=== PATIENT | male | born 1975 | race Caucasian/White ===

== ENCOUNTER 2018-01-05 19:24 | Inpatient (IN) | payer OTHER ==
--- NOTE | 2018-01-05 20:43 | PDOC ---
History of Present Illness <Steffanie Arroyo - Last Filed: 01/05/18 23:34> - History of Present Illness Initial Comments: 42yo M with no significant PMH presenting with RLQ pain. Pain has been constant , started about 24 hours ago, and gradually getting worse, now 10/10. Walking and movement makes the pain worse. Patient reports loss of appetitie and 2 episodes of NBNB vomiting. Last bowel movement was today and was a normal formed brown stool. No history of kidney stones or surgery. He has not taken anything to alleviate the pain. Reports fever and chills. Denies chest pain, shortness of breath, dysuria, or hematuria. <ThaiAnel - Last Filed: 01/05/18 23:39> - General Chief Complaint: Pain, Acute Stated Complaint: ABDOMINAL PAIN Time Seen by Provider: 01/05/18 20:42 Past History <Steffanie Arroyo - Last Filed: 01/05/18 23:34> - Past Medical History COPD: No - Suicide/Smoking/Psychosocial Hx Smoking History: Never smoked <ThaiDejuanAnel - Last Filed: 01/05/18 23:39> - Past Medical History Allergies/Adverse Reactions: Allergies Allergy/AdvReac Type Severity Reaction Status Date / Time No Known Allergies Allergy Verified 01/05/18 19:30 Review of Systems - Review of Systems Comments:: Constitutional: +fever, +chills Cardiovascular: no chest pain, no palpitations Respiratory: no cough, no shortness of breath Gastrointestinal: +abdominal pain, +nausea, +vomiting, no diarrhea, no constipation Genitourinary: no dysuria, no frequency Musculoskeletal: no myalgia, no arthralgia Skin: no rash, no itching Neurologic: no headache, no dizziness <ThaiDejuanAnel - Last Filed: 01/05/18 23:39> *Physical Exam - Vital Signs Last Vital Signs Temp Pulse Resp BP Pulse Ox 97.1 F L 86 20 110/78 99 01/05/18 19:30 01/05/18 22:42 01/05/18 22:42 01/05/18 22:42 01/05/18 22:42 <Steffanie Arroyo - Last Filed: 01/05/18 23:34> - Vital Signs Last Vital Signs Temp Pulse Resp BP Pulse Ox 97.1 F L 90 18 108/82 99 01/05/18 19:30 01/05/18 19:30 01/05/18 19:30 01/05/18 19:30 01/05/18 19:30 - Physical Exam Comments: General: Awake, alert, and fully oriented, writhing in pain Head: no signs of trauma Eyes: EOMI, sclera anicteric ENT: Moist mucus membranes, Neck: Normal ROM, supple Lungs: Lungs clear, Normal breath sounds Cardio: Regular rhythm, S1 and S2 present Abdomen: Soft, Tender to palpation in RLQ, + rebound, +Psoas, + Obturator, + McBurney, + Rovsing, no masses Extremities: Normal range of motion, Distal pulses present SKIN: Warm, Dry, normal turgor Neurologic: Cranial nerves II through XII grossly intact. Normal speech <Anel Monsalve - Last Filed: 01/05/18 23:39> ED Treatment Course - LABORATORY CBC & Chemistry Diagram: 01/05/18 21:32 01/05/18 21:32 - ADDITIONAL ORDERS Additional order review: Laboratory Results 01/05/18 01/05/18 01/05/18 21:35 21:32 21:32 PT with INR INR Sodium Potassium Chloride Carbon Dioxide Anion Gap BUN Creatinine Creat Clearance w eGFR Random Glucose Lactic Acid 1.2 Calcium Total Bilirubin AST ALT Alkaline Phosphatase Total Protein Albumin Lipase Urine Color Ltyellow Urine Appearance Clear Urine pH 7.0 Ur Specific [place] 1.010 Urine Protein Negative Urine Glucose (UA) Negative Urine Ketones Trace H Urine Blood Negative Urine Nitrite Negative Urine Bilirubin Negative Urine Urobilinogen Negative Ur Leukocyte Esterase Negative Blood Type B POSITIVE Antibody Screen Negative 01/05/18 01/05/18 21:32 21:32 PT with INR 13.90 H INR 1.18 H Sodium 141 Potassium 3.8 Chloride 104 Carbon Dioxide 24 Anion Gap 13 BUN 11 Creatinine 0.8 Creat Clearance w eGFR > 60 Random Glucose 100 Lactic Acid Calcium 9.7 Total Bilirubin 1.3 H AST 13 L ALT 25 Alkaline Phosphatase 47 Total Protein 7.6 Albumin 4.1 Lipase 143 Urine Color Urine Appearance Urine pH Ur Specific [place] Urine Protein Urine Glucose (UA) Urine Ketones Urine Blood Urine Nitrite Urine Bilirubin Urine Urobilinogen Ur Leukocyte Esterase Blood Type Antibody Screen 01/05/18 21:32 RBC 4.83 MCV 88.8 MCHC 33.3 RDW 13.4 MPV 8.1 Neutrophils % 74.6 Lymphocytes % 18.3 Monocytes % 6.0 Eosinophils % 0.3 Basophils % 0.8 - Medications Given in the ED: ED Medications Discontinued Medications Generic Name Dose Route Start Last Admin Trade Name Ron PRN Reason Stop Dose Admin Sodium Chloride 1,000 mls @ 1,000 mls/hr 01/05/18 21:11 01/05/18 21:32 Normal Saline - IV 01/05/18 22:10 1,000 mls/hr ASDIR STA Administration Morphine Sulfate 4 mg 01/05/18 21:10 01/05/18 21:32 Morphine Injection - IVPUSH 01/05/18 21:11 4 mg ONCE ONE Administration Ondansetron HCl 4 mg 01/05/18 21:10 01/05/18 21:32 Zofran Injection IVPUSH 01/05/18 21:11 4 mg ONCE ONE Administration <Steffanie Arroyo - Last Filed: 01/05/18 23:34> - LABORATORY CBC & Chemistry Diagram: 01/05/18 21:32 01/05/18 21:32 <Anel Monsalve - Last Filed: 01/05/18 23:39> Medical Decision Making - Medical Decision Making 01/05/18 23:34 Patient Name: LENO RHODES THIS IS A PRELIMINARY REPORT FROM [facility]AG[facility]SEM[employer] SUPERVISOR DATE OF SERVICE: 2018-01-05 22:34:34 IMAGES: [id number] EXAM: CT ABDOMEN \T\ PELVIS CT WITH CONTR HISTORY: Right lower quadrant pain COMPARISON: None. FINDINGS: Abdomen Liver: There is a small hepatic cyst Spleen: Normal Pancreas: Normal Gallbladder: Normal CONFIDENTIALITY NOTICE: This information is intended only for the use of the recipient(s) named above. If you are not the intended recipient, or a person responsible for delivering it to the intended recipient, you are hereby notified that any disclosure, copying, distribution or use of any of the information contained in or attached to this transmission is STRICTLY PROHIBITED. If you have received this transmission in error, please immediately notify Imaging Intervention Teacher and destroy the original transmission and its attachments without saving them in any manner [address] [facility] [address] [place] [address] Phone: [phone] Fax: Email: [email or web address] Patient Information: : 1975 Order Type: Preliminary Name: MEAGAN BURR Sex: M Study Description: CT ABDOMEN AND PELVIS Modality: CT Location: [facility] Referring Physician: THAI DURAND Stomach: Normal Small bowel: Normal Large bowel: Normal Appendix: Appendix is distended and inflamed measuring 11 mm. There is an appendicolith. There is surrounding inflammation. Adrenals:Normal Kidneys: Normal Vascular: Normal Lymphatic: Normal Peritoneal: No free peritoneal air or fluid Pelvis: Prostate: normal Rectum: Normal Bladder: Normal The inferior thorax: Normal General: Skeletal: Normal Abdominal wall: Normal IMPRESSION: Acute appendicitis <Steffanie Arroyo - Last Filed: 01/05/18 23:34> - Medical Decision Making Patient not in bed. Unaware of whereabouts. 01/05/18 20:50 42yo M with no significant PMH presenting with RLQ pain. DDX includes appendicitis given anorexia, nausea with RLQ tenderness on abdominal exam. Labs including CBC to assess for elevated white count CT abd/pelvis w/contrast Morphine 4mg for pain IV Fluids Zofran 4mg 01/05/18 21:27 WBC= 15.3, elevated Other labs, CT pending 01/05/18 22:03 CT abdomen/ pelvis: Appendix is distended and inflamed measuring 11mm. There is an appendicolith. There is surrounding inflammation. 01/05/18 23:38 <Anel Monsalve - Last Filed: 01/05/18 23:39> *DC/Admit/Observation/Transfer - Discharge Dispostion Decision to Admit order: Yes <Steffanie Arroyo - Last Filed: 01/05/18 23:34> <Anel Monsalve - Last Filed: 01/05/18 23:39> Diagnosis at time of Disposition: Appendicitis - Discharge Dispostion Condition at time of disposition: Guarded
[2018-01-05] MEDS ORDERED: morphine CARPU-JECT 4 MG/1 ML DISP.SYRIN IVPUSH ONE (21:10)
[2018-01-05] MEDS ORDERED: ONDANSETRON 4 MG/2 ML VIAL IVPUSH ONE (21:10)
[2018-01-05] MEDS ORDERED: SODIUM CHLORIDE 1,000 ML IV STA (21:11)
--- NOTE | 2018-01-05 21:28 | PDOC ---
Attending Attestation - HPI HPI: 01/05/18 21:34 The patient is a 42 year old male with no significant past medical history who presents to the ER with right lower quadrant pain since 10PM yesterday. Patient describes the right lower quadrant pain as a 9/10 in severity with 2 episodes of nonbloody, nonbilious vomit. Patient reports eating [place] food at 9PM last night prior to the onset of the right lower quadrant pain. Patient denies any history of kidney stones. Patient has not taken any pain medications today. Patient is also endorsing fevers and chills. Patient denies any abdominal surgeries in the past. The patient denies chest pain, shortness of breath, headache, and dizziness. Denies diarrhea, and constipation. Denies dysuria, frequency, urgency, and hematuria. Allergies: NKA Past surgical history: None reported. Social history: No reported alcohol, drug, or cigarette use. <Velvet Rivers - Last Filed: 01/05/18 22:18> - Resident Resident Name: Anel Monsalve - ED Attending Attestation I have performed the following: I have examined & evaluated the patient, The case was reviewed & discussed with the resident, I agree w/resident's findings & plan - Physicial Exam PE: 01/05/18 22:17 Agree with resident exam. Pt has RLQ rebound and guarding; rovsings sign - Medical Decision Making 01/05/18 22:17 CT pending. WBC 15. Pt has anorexia since last night. Pt had [place] restaurant food last night. He vomited 2x. Unclear if this is related to the food. 01/05/18 22:18 01/05/18 23:50 Patient Name: LENO RHODES THIS IS A PRELIMINARY REPORT FROM IM[facility] ELECTRICAL MACHINE BUILDER DATE OF SERVICE: 2018-01-05 22:34:34 IMAGES: 468 EXAM: CT ABDOMEN \T\ PELVIS CT WITH CONTR HISTORY: Right lower quadrant pain COMPARISON: None. FINDINGS: Abdomen Liver: There is a small hepatic cyst Spleen: Normal Pancreas: Normal Gallbladder: Normal CONFIDENTIALITY NOTICE: This information is intended only for the use of the recipient(s) named above. If you are not the intended recipient, or a person responsible for delivering it to the intended recipient, you are hereby notified that any disclosure, copying, distribution or use of any of the information contained in or attached to this transmission is STRICTLY PROHIBITED. If you have received this transmission in error, please immediately notify Imaging Senior Oracle Applications Developer and destroy the original transmission and its attachments without saving them in any manner [address] [place] [address] Phone: [phone] Fax: Email: [email or web address]: [email or web address] Patient Information: : 1975 Order Type: Preliminary Name: MEAGAN BURR Sex: M Study Description: CT ABDOMEN AND PELVIS Modality: CT Location: [facility] Referring Physician: THAI DURAND Stomach: Normal Small bowel: Normal Large bowel: Normal Appendix: Appendix is distended and inflamed measuring 11 mm. There is an appendicolith. There is surrounding inflammation. Adrenals:Normal Kidneys: Normal Vascular: Normal Lymphatic: Normal Peritoneal: No free peritoneal air or fluid Pelvis: Prostate: normal Rectum: Normal Bladder: Normal The inferior thorax: Normal General: Skeletal: Normal Abdominal wall: Normal IMPRESSION: Acute appendicitis 01/05/18 23:53 Pt is stable at this time. WBC elevated. +small ketones in the urine and we will hydrate with a 2nd L of NSS. Pt will be given 1 dose of cefoxitin 2g <Steffanie Arroyo - Last Filed: 01/05/18 23:53>
[2018-01-05] MEDS ORDERED: morphine SULFATE 4 MG/ML VIAL ONE (21:34)
[2018-01-05] MEDS ORDERED: ONDANSETRON 4 MG/2 ML VIAL ONE (21:34)
[2018-01-05 21:36] LABS: BASO % 0.8 % (0-2.0); EOS % 0.3 % (0-4.5); HEMATOCRIT 42.9 % (35.4-49); HEMOGLOBIN 14.3 GM/dL (11.7-16.9); LYMPH % 18.3 % (8-40); MCH 29.6 pg (25.7-33.7); MCHC 33.3 g/dl (32.0-35.9); MEAN CELL VOLUME 88.8 fl (80-96); MEAN PLT VOLUME 8.1 fl (7.5-11.1); NEUT % 74.6 % (42.8-82.8); PLATELET COUNT 200 K/MM3 (134-434); RBC 4.83 M/mm3 (4.00-5.60); RDW 13.4 % (11.9-15.9); WHITE BLOOD COUNT 15.3 K/mm3 (4.0-10.0)
[2018-01-05 21:51] LABS: INR 1.18 (0.83-1.09); PROTHROMBIN TIME (PATIENT) 13.9 SEC (9.7-13.0)
[2018-01-05 21:57] LABS: URINE APPEARANCE CLEAR; URINE BILIRUBIN NEGATIVE (<2.0 mg/dL); URINE COLOR LTYELLOW; URINE GLUCOSE (UA) NEGATIVE (NEGATIVE); URINE KETONE TRACE (NEGATIVE); URINE LEUK ESTERASE NEGATIVE (NEGATIVE); URINE NITRITE NEGATIVE (NEGATIVE); URINE PROTEIN NEGATIVE (NEGATIVE); URINE UROBILINOGEN NEGATIVE mg/dL (0.2-1.0)
[2018-01-05 22:06] LABS: ALBUMIN 4.1 g/dl (3.4-5.0); ALK PHOS 47 U/L (45-117); ANION GAP 13 MMOL/L (8-16); BILIRUBIN,TOTAL 1.3 mg/dL (0.2-1); BLOOD UREA NITROGEN 11 mg/dL (7-18); CALCIUM 9.7 mg/dL (8.5-10.1); CHLORIDE 104 mmol/L (98-107); CO2 24 mmol/L (21-32); CREATININE 0.8 mg/dL (0.55-1.3); GLUCOSE,RANDOM 100 mg/dL (74-106); LIPASE 143 U/L (73-393); POTASSIUM 3.8 mmol/L (3.5-5.1); SGOT/AST 13 U/L (15-37); SGPT/ALT 25 U/L (13-61); SODIUM 141 mmol/L (136-145); TOT PROT 7.6 g/dl (6.4-8.2)
[2018-01-05] MEDS ORDERED: CEFOXITIN SODIUM 2 GM in DEXTROSE 5%-WATER - 100 ML IVPB ONE (23:37)
--- NOTE | 2018-01-05 23:42 | PN ---
Teaching Attending Note Name of Resident: Arvin Bhakta ATTENDING PHYSICIAN STATEMENT I saw and evaluated the patient. I reviewed the resident's note and discussed the case with the resident. I agree with the resident's findings and plan as documented. SUBJECTIVE: Patient is a 42 year old man with no significant PMH who presents to the ER with right lower quadrant pain since 10PM yesterday. Patient describes the right lower quadrant pain as a 9/10 in severity with 2 episodes of scanty nonbloody, nonbilious vomit. Patient reports eating Maltese food at 9PM last night prior to the onset of the right lower quadrant pain. Patient denies any history of kidney stones. Patient has not taken any pain medications today. Patient is also has fevers and chills. Patient denies any abdominal surgeries in the past. OBJECTIVE: Alert Vital Signs Period Temp Pulse Resp BP Sys/Tai Pulse Ox Last 24 Hr 97.1 F 86-90 18-20 108-110/78-82 99-99 HEENT: No Jaundice, eye redness or discharge, PERRLA, EOMI. Normocephalic, atraumatic. External ears are normal and hearing is grossly intact. No nasal discharge. Neck: Supple, nontender. No palpable adenopathy or thyromegaly. No JVD Chest: Good effort. Clear to auscultation and percussion. Heart: Regular. No S3, rub or murmur Abdomen: Not distended, soft, RLQ tenderness and no HSM. No rebound: +guarding. Normoactive bowel sounds. Ext: Peripheral pulses intact. No leg edema. Skin: Warm and dry. No petechiae, rash or ecchymosis. Neuro: Alert. Oriented x3. CN 2-12 grossly intact. Sensation grossly intact in all four extremities and DTR are symmetric. Current Medications Generic Name Dose Route Start Last Admin Trade Name Freq PRN Reason Stop Dose Admin Cefoxitin Sodium 2 gm/ 100 mls @ 200 mls/hr 01/05/18 23:37 Dextrose IVPB 01/06/18 00:06 ONCE ONE Protocol Abnormal Lab Results 01/05/18 01/05/18 01/05/18 21:32 21:32 21:32 WBC 15.3 H Absolute Neuts (auto) 11.4 H PT with INR 13.90 H INR 1.18 H Total Bilirubin 1.3 H AST 13 L Urine Ketones 01/05/18 21:35 WBC Absolute Neuts (auto) PT with INR INR Total Bilirubin AST Urine Ketones Trace H ASSESSMENT AND PLAN: 1. Appendicitis - Got Cefoxitin 2 gm IV and will get another dose in the morning before appendectomy. Surgery consulted. Continue IV NS. 2. DVT prophylaxis - Lovenox 40 mg SQ q 24 hours. 3. Advance directives - Full code
[2018-01-05] MEDS ORDERED: SODIUM CHLORIDE 0.9% 500 ML INFUS.BAG IV ONE (23:53)
[2018-01-06] MEDS ORDERED: D5-1/2NS+20 MEQ KCL - 20 MEQ/1,000 ML INFUS.BAG IV SCH (00:30)
--- NOTE | 2018-01-06 00:52 | HP ---
CHIEF COMPLAINT: RLQ pain PCP: None. Pt given card to follow at resident's clinic HISTORY OF PRESENT ILLNESS: Pt is a 42 y/o M with no PMH who presented to ED with RLQ pain since yesterday. He also had 2 episodes of NBNB vomiting. Pain is currently well controlled. No other complaints. Denies dysuria, BRBPR, sob, cp. ER course was notable for: (1) WBC 15.3, Tbili 1.3 (2) CT correction warden reveals appendicitis with appendicolith (3) Zofran, Morphine, NS, Cefoxitin Recent Travel: denies PAST MEDICAL HISTORY: denies PAST SURGICAL HISTORY: denies Social History: Smoking: denies Alcohol: stopped drinking 10 years ago Drugs: denies Family History: Allergies No Known Allergies Allergy (Verified 01/05/18 19:30) HOME MEDICATIONS: REVIEW OF SYSTEMS CONSTITUTIONAL: Absent: fever, chills, diaphoresis, generalized weakness, malaise, loss of appetite, weight change HEENT: Absent: rhinorrhea, nasal congestion, throat pain, throat swelling, difficulty swallowing, mouth swelling, ear pain, eye pain, visual changes CARDIOVASCULAR: Absent: chest pain, syncope, palpitations, irregular heart rate, lightheadedness , peripheral edema RESPIRATORY: Absent: cough, shortness of breath, dyspnea with exertion, orthopnea, wheezing, stridor, hemoptysis GASTROINTESTINAL:abdominal pain, nausea, vomiting Absent: , abdominal distension, diarrhea, constipation, melena, hematochezia GENITOURINARY: Absent: dysuria, frequency, urgency, hesitancy, hematuria, flank pain, genital pain MUSCULOSKELETAL: Absent: myalgia, arthralgia, joint swelling, back pain, neck pain SKIN: Absent: rash, itching, pallor HEMATOLOGIC/IMMUNOLOGIC: Absent: easy bleeding, easy bruising, lymphadenopathy, frequent infections ENDOCRINE: Absent: unexplained weight gain, unexplained weight loss, heat intolerance, cold intolerance NEUROLOGIC: Absent: headache, focal weakness or paresthesias, dizziness, unsteady gait, seizure, mental status changes, bladder or bowel incontinence PSYCHIATRIC: Absent: anxiety, depression, suicidal or homicidal ideation, hallucinations. PHYSICAL EXAMINATION Vital Signs - 24 hr 01/05/18 01/05/18 19:30 22:42 Temperature 97.1 F L Pulse Rate 90 Pulse Rate [ 86 Apical] Respiratory 18 20 Rate Blood Pressure 108/82 Blood Pressure 110/78 [Right Arm] O2 Sat by Pulse 99 99 Oximetry (%) GENERAL: Awake, alert, and fully oriented, in no acute distress. HEAD: Normal with no signs of trauma. EYES: Pupils equal, round and reactive to light, extraocular movements intact, sclera anicteric, conjunctiva clear. No lid lag. EARS, NOSE, THROAT: Ears normal, nares patent, oropharynx clear without exudates. Moist mucous membranes. NECK: Normal range of motion, supple without lymphadenopathy, JVD, or masses. LUNGS: Breath sounds equal, clear to auscultation bilaterally. No wheezes, and no crackles. No accessory muscle use. HEART: Regular rate and rhythm, normal S1 and S2 without murmur, rub or gallop. ABDOMEN: Soft, tender to palpation, not distended, normoactive bowel sounds, no guarding, no rebound, no masses. No hepatomegaly or splenomegaly. MUSCULOSKELETAL: Normal range of motion at all joints. No bony deformities or tenderness. No CVA tenderness. UPPER EXTREMITIES: 2+ pulses, warm, well-perfused. No cyanosis. No clubbing. No peripheral edema. LOWER EXTREMITIES: 2+ pulses, warm, well-perfused. No calf tenderness. No peripheral edema. Laboratory Results - last 24 hr 01/05/18 01/05/18 01/05/18 21:32 21:32 21:32 WBC 15.3 H RBC 4.83 Hgb 14.3 Hct 42.9 MCV 88.8 MCH 29.6 MCHC 33.3 RDW 13.4 Plt Count 200 MPV 8.1 Absolute Neuts (auto) 11.4 H Neutrophils % 74.6 Lymphocytes % 18.3 Monocytes % 6.0 Eosinophils % 0.3 Basophils % 0.8 Nucleated RBC % 0 PT with INR 13.90 H INR 1.18 H Sodium 141 Potassium 3.8 Chloride 104 Carbon Dioxide 24 Anion Gap 13 BUN 11 Creatinine 0.8 Creat Clearance w eGFR > 60 Random Glucose 100 Lactic Acid Calcium 9.7 Total Bilirubin 1.3 H AST 13 L ALT 25 Alkaline Phosphatase 47 Total Protein 7.6 Albumin 4.1 Lipase 143 Urine Color Urine Appearance Urine pH Ur Specific [place] Urine Protein Urine Glucose (UA) Urine Ketones Urine Blood Urine Nitrite Urine Bilirubin Urine Urobilinogen Ur Leukocyte Esterase Blood Type Antibody Screen 01/05/18 01/05/18 01/05/18 21:32 21:32 21:35 WBC RBC Hgb Hct MCV MCH MCHC RDW Plt Count MPV Absolute Neuts (auto) Neutrophils % Lymphocytes % Monocytes % Eosinophils % Basophils % Nucleated RBC % PT with INR INR Sodium Potassium Chloride Carbon Dioxide Anion Gap BUN Creatinine Creat Clearance w eGFR Random Glucose Lactic Acid 1.2 Calcium Total Bilirubin AST ALT Alkaline Phosphatase Total Protein Albumin Lipase Urine Color Ltyellow Urine Appearance Clear Urine pH 7.0 Ur Specific [place] 1.010 Urine Protein Negative Urine Glucose (UA) Negative Urine Ketones Trace H Urine Blood Negative Urine Nitrite Negative Urine Bilirubin Negative Urine Urobilinogen Negative Ur Leukocyte Esterase Negative Blood Type B POSITIVE Antibody Screen Negative ASSESSMENT/PLAN: Pt is a 42 y/o M with no PMH who presents with abdominal pain and vomiting for [address] reveals appendicitis. Pt admitted to Med/Surg. #Appendicitis -WBC 15 -CT correction warden revealed appendicitis -Morphine, Zofran given. Pain currently controlled. No nausea at present -1st dose Cefoxitin given in ED. -2nd dose Cefoxitin ordered for 8am -D5 1/2 NS + 20KCl at 42 maintenance -Surg consulted and called. Plan for OR in the morning #FEN -maintenance fluids -lytes wnl -NPO for surgery #PPx -SCDs #Dispo -Med/Surg. For OR tomorrow Arvin Bhakta MD PGY-2 IM Visit type - Emergency Visit Emergency Visit: Yes Care time: The patient presented to the Emergency Department on the above date and was hospitalized for further evaluation of their emergent condition. - New Patient This patient is new to me today: Yes Date on this admission: 01/06/18 - Critical Care Critical Care patient: No Hospitalist Screening - Colonoscopy Questionnaire Colonoscopy Questionnaire: Colonoscopy Questionnaire - Patient: 50 - 75 years old and never had a screening colonoscopy: Unknown History of colon or rectal polyps, or CA: Unknown History of IBD, Crohn's disease or UC: Unknown History of abdominal radiation therapy as a child: Unknown - Relative: 1 with colon or rectal CA, or polyps at age 60 or younger: Unknown Colon or rectal CA diagnosed at age 45 or younger: Unknown Multiple relatives with colon or rectal CA: Unknown - Outcome: Screening Result: Negative Screen
[2018-01-06 07:39] LABS: BASO % 0.3 % (0-2.0); EOS % 0.2 % (0-4.5); HEMATOCRIT 39.7 % (35.4-49); HEMOGLOBIN 13.1 GM/dL (11.7-16.9); LYMPH % 11.2 % (8-40); MCH 29.2 pg (25.7-33.7); MEAN CELL VOLUME 88.5 fl (80-96); MEAN PLT VOLUME 8.3 fl (7.5-11.1); MONO % 5.2 % (3.8-10.2); NEUT % 83.1 % (42.8-82.8); PLATELET COUNT 178 K/MM3 (134-434); RBC 4.49 M/mm3 (4.00-5.60); RDW 13.4 % (11.9-15.9); WHITE BLOOD COUNT 13.1 K/mm3 (4.0-10.0)
[2018-01-06 07:41] VITALS: BMI 22.2
[2018-01-06] MEDS ORDERED: CEFOXITIN SODIUM 1 GM in DEXTROSE 5%-WATER - 100 ML IVPB ONE (08:00)
[2018-01-06 08:27] LABS: INR 1.18 (0.83-1.09)
[2018-01-06 08:38] LABS: ANION GAP 12 MMOL/L (8-16); BLOOD UREA NITROGEN 13 mg/dL (7-18); CALCIUM 8.6 mg/dL (8.5-10.1); CHLORIDE 105 mmol/L (98-107); CO2 23 mmol/L (21-32); CREATININE 0.8 mg/dL (0.55-1.3); GLUCOSE,RANDOM 91 mg/dL (74-106); POTASSIUM 3.3 mmol/L (3.5-5.1); SODIUM 140 mmol/L (136-145)
[2018-01-06] MEDS ORDERED: PROMETHAZINE HCL 25 MG/1 ML VIAL IVPUSH PRN (08:41)
[2018-01-06] MEDS ORDERED: ONDANSETRON 4 MG/2 ML VIAL IVPUSH PRN (08:41)
[2018-01-06] MEDS ORDERED: LACTATED RINGERS SOLUTION 1,000 ML IV SCH ×2 (08:45→12:24)
[2018-01-06] MEDS ORDERED: BUPIVACAINE HCL/PF 0.5% (5MG/ML) 10 ML VIAL ONE (10:02)
[2018-01-06] MEDS ORDERED: MIDAZOLAM HCL 2 MG/2 ML SINGLE DOSE VIAL ONE (10:12)
[2018-01-06] MEDS ORDERED: PROPOFOL 20 ML ONE (10:12)
[2018-01-06] MEDS ORDERED: ROCURONIUM BROMIDE 50 MG/5 ML VIAL ONE (10:12)
[2018-01-06] MEDS ORDERED: LIDOCAINE HCL/PF 2% SDV 5ML VIAL ONE (10:13)
--- NOTE | 2018-01-06 10:21 | CONSULT ---
Consult Consult Specialty:: General Surgery Referred by:: Steffanie Arroyo Reason for Consultation:: appendicitis - History of Present Illness Chief Complaint: RLQ pain, fever History of Present Illness: 42yo M with no PMH/PSH presented with RLQ pain for 2 days, associated with subjective fever, denies N/V though ER reported he admitted to 2 episodes, constipation or diarrhea. In ER, he was afebrile, wbc 15, and CT showed acute appendicitis with appendicolith, no perf or abscess. He was given IV fluids and started on antibiotics, kept NPO and given pain meds. He is seen on the floor, resting comfortably, and indicates only RLQ pain/tenderness. Better than before. - History Source History Provided By: Patient Limitations to Obtaining History: No Limitations - Past Medical History Additional Medical History: denies - Past Surgical History Past Surgical History: Yes: None - Alcohol/Substance Use Hx Alcohol Use: No (not for 9 years) History of Substance Use: reports: None - Smoking History Smoking history: Never smoked Have you smoked in the past 12 months: No - Social History ADL: Independent Occupation: works in store Home Medications - Allergies Allergies/Adverse Reactions: Allergies Allergy/AdvReac Type Severity Reaction Status Date / Time No Known Allergies Allergy Verified 01/05/18 19:30 - Home Medications Home Medications: Ambulatory Orders NK [No Known Home Medication] 01/06/18 Family Disease History - Family Disease History Family History: Unremarkable Review of Systems - Review of Systems Constitutional: reports: Fever. denies: Chills Eyes: denies: Blurred Vision, Recent Change in Vision HENT: denies: Difficult Swallowing, Throat Pain Neck: denies: Swollen Glands, Tenderness Cardiovascular: denies: Chest Pain, Palpitations Respiratory: denies: Cough, SOB Gastrointestinal: reports: Abdominal Pain (with hpi). denies: Constipation, Diarrhea, Nausea, Vomiting Genitourinary: denies: Burning, Dysuria Musculoskeletal: denies: Back Pain, Joint Pain, Muscle Pain Integumentary: denies: Change in Color, Rash Neurological: denies: Dizziness, Headache Physical Exam Vital Signs: Vital Signs Temperature 98.4 F 01/06/18 07:28 Pulse Rate 88 01/06/18 07:28 Respiratory Rate 18 01/06/18 07:28 Blood Pressure 103/61 01/06/18 07:28 O2 Sat by Pulse Oximetry (%) 96 01/06/18 07:28 Constitutional: Yes: Well Nourished, No Distress, Calm Eyes: Yes: Conjunctiva Clear, EOM Intact HENT: Yes: Atraumatic, Normocephalic Neck: Yes: Supple, Trachea Midline Cardiovascular: Yes: Regular Rate and Rhythm Respiratory: Yes: Regular, CTA Bilaterally Gastrointestinal: Yes: Soft, Hypoactive Bowel Sounds, Tenderness (RLQ at [facility]'s with referred tend from LLQ, RUQ). No: Distention, Tenderness, Rebound ...Rectal Exam: Yes: Deferred Renal/: No: CVA Tenderness - Left, CVA Tenderness - Right Musculoskeletal: No: Joint Stiffness, Joint Swelling Extremities: No: Cool, Cyanosis Edema: No Peripheral Pulses WNL: Yes Integumentary: No: Jaundice, Rash Neurological: Yes: Alert, Oriented Psychiatric: Yes: Alert, Oriented Labs: CBC, BMP 01/06/18 07:18 01/06/18 07:18 CMP Sodium 140 mmol/L (136-145) 01/06/18 07:18 Potassium 3.3 mmol/L (3.5-5.1) L 01/06/18 07:18 Chloride 105 mmol/L (98-107) 01/06/18 07:18 Carbon Dioxide 23 mmol/L (21-32) 01/06/18 07:18 Anion Gap 12 MMOL/L (8-16) 01/06/18 07:18 BUN 13 mg/dL (7-18) 01/06/18 07:18 Creatinine 0.8 mg/dL (0.55-1.3) 01/06/18 07:18 Creat Clearance w eGFR > 60 (>60) 01/06/18 07:18 Random Glucose 91 mg/dL (74-106) 01/06/18 07:18 Lactic Acid 1.2 mmol/L (0.4-2.0) 01/05/18 21:32 Calcium 8.6 mg/dL (8.5-10.1) 01/06/18 07:18 Total Bilirubin 1.3 mg/dL (0.2-1) H 01/05/18 21:32 AST 13 U/L (15-37) L 01/05/18 21:32 ALT 25 U/L (13-61) 01/05/18 21:32 Alkaline Phosphatase 47 U/L (45-117) 01/05/18 21:32 Total Protein 7.6 g/dl (6.4-8.2) 01/05/18 21:32 Albumin 4.1 g/dl (3.4-5.0) 01/05/18 21:32 Lipase 143 U/L (73-393) 01/05/18 21:32 INR, PTT INR 1.18 (0.83-1.09) H 01/06/18 07:18 Urine Test Results Urine Color Ltyellow 01/05/18 21:35 Urine Appearance Clear 01/05/18 21:35 Urine pH 7.0 (5.0-8.0) 01/05/18 21:35 Ur Specific [place] 1.010 (1.001-1.035) 01/05/18 21:35 Urine Protein Negative (NEGATIVE) 01/05/18 21:35 Urine Glucose (UA) Negative (NEGATIVE) 01/05/18 21:35 Urine Ketones Trace (NEGATIVE) H 01/05/18 21:35 Urine Blood Negative (NEGATIVE) 01/05/18 21:35 Urine Nitrite Negative (NEGATIVE) 01/05/18 21:35 Urine Bilirubin Negative (<2.0 mg/dL) 01/05/18 21:35 Ur Leukocyte Esterase Negative (NEGATIVE) 01/05/18 21:35 Imaging - Results Cat Scan: Report Reviewed, Image Reviewed (images personally reviewed - acute appendicitis without abscess or perforation) Problem List - Problems (1) Acute appendicitis with localized peritonitis Assessment/Plan: admitted to medicine NPO/IVF antibiotics pain meds prn Discussed with patient risks, benefits and alternatives of laparoscopic possible open appendectomy, including but not limited to bleeding, infection, injury to adjacent structures, intestinal leak or injury, intraabdominal abscess , incisional hernia, need for further procedures, ; alternatives include antibiotics, delayed or no surgery - risks of this include failure of nonoperative therapy, perforation, sepsis, recurrence, . Patient desires to proceed with operation - will take to OR for above. Informed consent signed for same. Code(s): K35.3 - ACUTE APPENDICITIS WITH LOCALIZED PERITONITIS * DO NOT USE * Qualifiers: Appendicitis gangrene presence: without gangrene Appendicitis perforation presence: without perforation Appendicitis abscess presence: without abscess Qualified Code(s): K35.30 - Acute appendicitis with localized peritonitis, without perforation or gangrene (2) RLQ abdominal pain Code(s): R10.31 - RIGHT LOWER QUADRANT PAIN (3) Leukocytosis Code(s): D72.829 - ELEVATED WHITE BLOOD CELL COUNT, UNSPECIFIED Qualifiers: Leukocytosis type: bandemia Qualified Code(s): D72.825 - Bandemia
[2018-01-06] MEDS ORDERED: DEXAMETHASONE SOD PHOSPHATE 4 MG/1 ML VIAL ONE (10:34)
[2018-01-06] MEDS ORDERED: FLU VACCINE QUAD 60 MCG/0.5 ML (MDV 18-19) IM ONE (11:00)
[2018-01-06] MEDS ORDERED: GLYCOPYRROLATE 0.2 MG/1 ML VIAL ONE (11:35)
[2018-01-06] MEDS ORDERED: NEOSTIGMINE METHYLSULFATE 0.5 MG/ML - 10 ML MDV ONE (11:35)
[2018-01-06] MEDS ORDERED: KETOROLAC TROMETHAMINE 30 MG/1 ML VIAL ONE (11:38)
[2018-01-06] MEDS ORDERED: BUPIVACAINE HCL/PF 0.5% (5MG/ML) 10 ML VIAL IJ ONE ×2 (11:38)
--- NOTE | 2018-01-06 12:03 | OP ---
Operative Note - Note: Operative Date: 01/06/18 Pre-Operative Diagnosis: acute appendicitis with localized peritonitis Operation: laparoscopic appendectomy Findings: partially necrotic appendix, edematous with serosal exudate oozing fluid, normal base, small amount yellow fluid in pelvis suctioned Post-Operative Diagnosis: Same as Pre-op Surgeon: Freddy Smith Retirement Assistant: Cecilia Angela ([id number]) Anesthesiologist/WAIST CUTTER: Alan Hartley Anesthesia: General, Local (10ml 0.5% marcaine) Specimens Removed: appendix to pathology Estimated Blood Loss (mls): 5 Drains & Tubes with Location: [place] out at end of case Drains, Volume Out (mls): 400 (UOP) Fluid Volume Replaced (mls): 500 (crystalloid) Operative Report Dictated: Yes
[2018-01-06] MEDS ORDERED: ACETAMINOPHEN 1000 MG/100 ML VIAL (NON FORMULARY) IVPB ONE (12:08)
[2018-01-06] MEDS ORDERED: oxyCODONE HCL 5 MG TABLET PO PRN ×2 (12:09→12:24)
[2018-01-06] MEDS: ACETAMINOPHEN 1000 MG/100 ML VIAL (NON FORMULARY) IVPB ONE ×2 (12:34→13:11)
[2018-01-06] MEDS ORDERED: PIPERACILLIN/TAZOBACTAM 3.375 GM VIAL IVPB ONE ×2 (14:15→21:01)
[2018-01-06] MEDS ORDERED: DEXTROSE 5%-WATER - 50 ML IVPB ONE ×2 (14:15→21:01)
[2018-01-06] MEDS: IBUPROFEN 600 MG TABLET (FP) PO SCH ×2 (14:24→21:21)
[2018-01-06] MEDS: PIPERACILLIN/TAZOB 3.375 GM 3.375 GM in DEXTROSE 5%-WATER - 50 ML IVPB SCH ×2 (14:24→21:19)
[2018-01-06] MEDS ORDERED: IBUPROFEN 600 MG TABLET (FP) PO SCH (15:00)
[2018-01-06] MEDS ORDERED: PIPERACILLIN/TAZOB 3.375 GM 3.375 GM in DEXTROSE 5%-WATER - 50 ML IVPB SCH (15:00)
--- NOTE | 2018-01-06 16:47 | PN ---
Physical Exam: SUBJECTIVE: Patient seen and examined this morning at bedside. Scheduled for surgery today. Currently pain is 5-6/10. No nausea or vomiting since initial onset of pain. Denies fevers, chills, chest pain, SOB, nausea, vomiting, diarrhea, constipation. OBJECTIVE: Vital Signs Period Temp Pulse Resp BP Sys/Tai Pulse Ox Last 24 Hr 97.1 F-99 F 69-90 16-20 103-117/54-84 96-100 GENERAL: A&Ox3, NAD HEAD: NCAT EYES: PERRL, EOMI ENT: Oropharynx clear without exudates, MMM NECK: No JVD LUNGS: Breath sounds equal, clear to auscultation bilaterally, no wheezes HEART: Regular rate and rhythm, S1, S2 without murmur ABDOMEN: Soft, Tender to palpation in the RLQ, nondistended, + bowel sounds, no guarding, no rebound, Negative Obturator sign, Negative psoas sign, negative lloyds punch EXTREMITIES: 2+ pulses, no edema. NEUROLOGICAL: Cranial nerves II through XII grossly intact SKIN: Warm, dry, no rashes or lesions noted Laboratory Results - last 24 hr 01/05/18 01/05/18 01/05/18 21:32 21:32 21:32 WBC 15.3 H RBC 4.83 Hgb 14.3 Hct 42.9 MCV 88.8 MCH 29.6 MCHC 33.3 RDW 13.4 Plt Count 200 MPV 8.1 Absolute Neuts (auto) 11.4 H Neutrophils % 74.6 Lymphocytes % 18.3 Monocytes % 6.0 Eosinophils % 0.3 Basophils % 0.8 Nucleated RBC % 0 PT with INR 13.90 H INR 1.18 H PTT (Actin FS) Sodium 141 Potassium 3.8 Chloride 104 Carbon Dioxide 24 Anion Gap 13 BUN 11 Creatinine 0.8 Creat Clearance w eGFR > 60 Random Glucose 100 Lactic Acid Calcium 9.7 Total Bilirubin 1.3 H AST 13 L ALT 25 Alkaline Phosphatase 47 Total Protein 7.6 Albumin 4.1 Lipase 143 Urine Color Urine Appearance Urine pH Ur Specific [place] Urine Protein Urine Glucose (UA) Urine Ketones Urine Blood Urine Nitrite Urine Bilirubin Urine Urobilinogen Ur Leukocyte Esterase Blood Type Antibody Screen 01/05/18 01/05/18 01/05/18 21:32 21:32 21:35 WBC RBC Hgb Hct MCV MCH MCHC RDW Plt Count MPV Absolute Neuts (auto) Neutrophils % Lymphocytes % Monocytes % Eosinophils % Basophils % Nucleated RBC % PT with INR INR PTT (Actin FS) Sodium Potassium Chloride Carbon Dioxide Anion Gap BUN Creatinine Creat Clearance w eGFR Random Glucose Lactic Acid 1.2 Calcium Total Bilirubin AST ALT Alkaline Phosphatase Total Protein Albumin Lipase Urine Color Ltyellow Urine Appearance Clear Urine pH 7.0 Ur Specific [place] 1.010 Urine Protein Negative Urine Glucose (UA) Negative Urine Ketones Trace H Urine Blood Negative Urine Nitrite Negative Urine Bilirubin Negative Urine Urobilinogen Negative Ur Leukocyte Esterase Negative Blood Type B POSITIVE Antibody Screen Negative 01/05/18 01/06/18 01/06/18 23:10 07:18 07:18 WBC 13.1 H RBC 4.49 Hgb 13.1 Hct 39.7 MCV 88.5 MCH 29.2 MCHC 33.0 RDW 13.4 Plt Count 178 MPV 8.3 Absolute Neuts (auto) 10.9 H Neutrophils % 83.1 H Lymphocytes % 11.2 D Monocytes % 5.2 Eosinophils % 0.2 Basophils % 0.3 Nucleated RBC % 0 PT with INR INR PTT (Actin FS) Sodium 140 Potassium 3.3 L Chloride 105 Carbon Dioxide 23 Anion Gap 12 BUN 13 Creatinine 0.8 Creat Clearance w eGFR > 60 Random Glucose 91 Lactic Acid Calcium 8.6 Total Bilirubin AST ALT Alkaline Phosphatase Total Protein Albumin Lipase Urine Color Urine Appearance Urine pH Ur Specific [place] Urine Protein Urine Glucose (UA) Urine Ketones Urine Blood Urine Nitrite Urine Bilirubin Urine Urobilinogen Ur Leukocyte Esterase Blood Type B POSITIVE Antibody Screen 01/06/18 07:18 WBC RBC Hgb Hct MCV MCH MCHC RDW Plt Count MPV Absolute Neuts (auto) Neutrophils % Lymphocytes % Monocytes % Eosinophils % Basophils % Nucleated RBC % PT with INR 14.00 H INR 1.18 H PTT (Actin FS) 32.0 Sodium Potassium Chloride Carbon Dioxide Anion Gap BUN Creatinine Creat Clearance w eGFR Random Glucose Lactic Acid Calcium Total Bilirubin AST ALT Alkaline Phosphatase Total Protein Albumin Lipase Urine Color Urine Appearance Urine pH Ur Specific [place] Urine Protein Urine Glucose (UA) Urine Ketones Urine Blood Urine Nitrite Urine Bilirubin Urine Urobilinogen Ur Leukocyte Esterase Blood Type Antibody Screen Active Medications Acetaminophen (Tylenol -) 650 mg PO Q6H KODAK Lactated Ringer's (Lactated Ringers Solution) 1,000 mls @ 125 mls/hr IV ASDIR KODAK Last Admin: 01/06/18 13:11 Dose: Not Given Piperacillin Sod/Tazobactam (Sod 3.375 gm/ Dextrose) 50 mls @ 100 mls/hr IVPB Q6H-IV KODAK; Protocol Stop: 01/07/18 14:59 Last Admin: 01/06/18 14:24 Dose: 100 mls/hr Ibuprofen (Motrin -) 600 mg PO Q6H KODAK Last Admin: 01/06/18 14:24 Dose: 600 mg Oxycodone HCl (Roxicodone -) 5 mg PO Q6H PRN PRN Reason: Pain Level 7 - 10 BREAK[address]OUGH IMAGING: CT A/P with contrast: Findings compatible with acute appendicitis and without evidence of extraluminal air or fluid collection/abscess formation. ASSESSMENT/PLAN: 42 y/o M with no PMHx presents with abdominal pain and vomiting for 1 day. 1. Appendicitis -CT A/P: Findings compatible with acute appendicitis -WBC 15.3-->13.1 -Currently AFebrile, Will monitor -Surgery (Dr. Smith) consulted, OR Today, will follow post-op rec's -Cefoxitin 2 doses given, Continue on Zosyn (Day 2 total Abx) -Pain control via Oxycodone, Tylenol, Motrin -Continue Lactated Ringers @ 125 mls/hr -Continue to monitor that patient is able to pass flatus/bm and tolerate diet -Can possibly D/C tmrw on Augmentin 875mg BID x 7 days 2. Hypokalemia -K+ 3.3 this am -Given 20 mEq K+ in D5 1/2 NS solution earlier -Will continue to monitor and replete as needed 3. FEN -Lactated Ringers @ 125 mls/hr -Monitor for Hypokalemia -Regular diet 4. PPx -DVT: SCDs #Dispo -Surgery today, Likely d/c tmrw Visit type - Emergency Visit Emergency Visit: Yes Care time: The patient presented to the Emergency Department on the above date and was hospitalized for further evaluation of their emergent condition. - New Patient This patient is new to me today: Yes Date on this admission: 01/06/18 - Critical Care Critical Care patient: No
[2018-01-06] MEDS: ACETAMINOPHEN 325 MG TABLET (FP) PO SCH (17:00)
[2018-01-06] MEDS ORDERED: ACETAMINOPHEN 325 MG TABLET (FP) PO SCH (18:00)
--- NOTE | 2018-01-06 20:02 | PN ---
Teaching Attending Note Name of Resident: Jacquelyn Gar ATTENDING PHYSICIAN STATEMENT I saw and evaluated the patient. I reviewed the resident's note and discussed the case with the resident. I agree with the resident's findings and plan as documented. SUBJECTIVE: Patient is back from surgery is doing well with no acute distress. OBJECTIVE: Vital Signs Temperature 97.9 F 01/06/18 17:31 Pulse Rate 73 01/06/18 17:31 Respiratory Rate 18 01/06/18 17:31 Blood Pressure 108/58 L 01/06/18 17:31 O2 Sat by Pulse Oximetry (%) 98 01/06/18 13:08 GENERAL: Awake, alert, and fully oriented, in no acute distress. HEAD: Normal with no signs of trauma. EYES: Pupils equal, round and reactive to light, extraocular movements intact, sclera anicteric, conjunctiva clear. EARS, NOSE, THROAT: Ears normal, oropharynx clear without exudates. Moist mucous membranes. NECK: Normal range of motion, supple without lymphadenopathy, JVD, or masses. LUNGS: Breath sounds equal, clear to auscultation bilaterally. No wheezes, and no crackles. No accessory muscle use. HEART: Regular rate and rhythm, normal S1 and S2 without murmur, rub or gallop. ABDOMEN: Soft, 3 incisions, not distended, diminished BS, no guarding, no rebound, no masses. No hepatomegaly or splenomegaly. MUSCULOSKELETAL: Normal range of motion at all joints. No bony deformities or tenderness. No CVA tenderness. EXTREMITIES: 2+ pulses, warm, well-perfused. No cyanosis. No clubbing. No peripheral edema. CBCD WBC 13.1 K/mm3 (4.0-10.0) H 01/06/18 07:18 RBC 4.49 M/mm3 (4.00-5.60) 01/06/18 07:18 Hgb 13.1 GM/dL (11.7-16.9) 01/06/18 07:18 Hct 39.7 % (35.4-49) 01/06/18 07:18 MCV 88.5 fl (80-96) 01/06/18 07:18 MCHC 33.0 g/dl (32.0-35.9) 01/06/18:18 RDW 13.4 % (11.9-15.9) 01/06/18 07:18 Plt Count 178 K/MM3 (134-434) 01/06/18 07:18 MPV 8.3 fl (7.5-11.1) 01/06/18 07:18 CMP Sodium 140 mmol/L (136-145) 01/06/18 07:18 Potassium 3.3 mmol/L (3.5-5.1) L 01/06/18 07:18 Chloride 105 mmol/L (98-107) 01/06/18 07:18 Carbon Dioxide 23 mmol/L (21-32) 01/06/18 07:18 Anion Gap 12 MMOL/L (8-16) 01/06/18 07:18 BUN 13 mg/dL (7-18) 01/06/18 07:18 Creatinine 0.8 mg/dL (0.55-1.3) 01/06/18 07:18 Creat Clearance w eGFR > 60 (>60) 01/06/18 07:18 Random Glucose 91 mg/dL (74-106) 01/06/18 07:18 Calcium 8.6 mg/dL (8.5-10.1) 01/06/18 07:18 Total Bilirubin 1.3 mg/dL (0.2-1) H 01/05/18 21:32 AST 13 U/L (15-37) L 01/05/18 21:32 ALT 25 U/L (13-61) 01/05/18 21:32 Alkaline Phosphatase 47 U/L (45-117) 01/05/18 21:32 Total Protein 7.6 g/dl (6.4-8.2) 01/05/18 21:32 Albumin 4.1 g/dl (3.4-5.0) 01/05/18 21:32 Current Medications Generic Name Dose Route Start Last Admin Trade Name Freq PRN Reason Stop Dose Admin Acetaminophen 650 mg 01/06/18 18:00 01/06/18 17:00 Tylenol - PO Not Given Q6H KODAK Lactated Ringer's 1,000 mls @ 125 mls/hr 01/06/18 12:24 01/06/18 13:11 Lactated Ringers Solution IV Not Given ASDIR KODAK Piperacillin Sod/Tazobactam 50 mls @ 100 mls/hr 01/06/18 15:00 01/06/18 14:24 Sod 3.375 gm/ Dextrose IVPB 01/07/18 14:59 100 mls/hr Q6H-IV KODAK Administration Protocol Ibuprofen 600 mg 01/06/18 15:00 01/06/18 14:24 Motrin - PO 600 mg Q6H KODAK Administration Oxycodone HCl 5 mg 01/06/18 12:24 Roxicodone - PO Q6H PRN Pain Level 7 - 10 BREAKTHROUGH Home Medications Medication Instructions Recorded Acetaminophen [Tylenol .Regular 650 mg PO Q6H tablet 01/06/18 Strength -] Ibuprofen [Motrin -] 600 mg PO Q6H tablet 01/06/18 CT A/P with contrast: Findings compatible with acute appendicitis and without evidence of extraluminal air or fluid collection/abscess formation. ASSESSMENT AND PLAN: Patient is a 42 y/o M with no PMHx presents with abdominal pain and vomiting for 1 day. #POD#0 s/p lap appendectomy continue iv antibiotic since was found to have partially necrotic appendix, edematous with serosal exudate oozing fluid, normal base, small amount yellow fluid in pelvis suctioned. Patient can be D/C home in am if stable medically on Augmentin 875mg BID x 7 days # Hypokalemia on ivf with K+ 3.3 replet. DVT px: SCDs
[2018-01-07] MEDS: ACETAMINOPHEN 325 MG TABLET (FP) PO SCH ×2 (01:34→05:25)
[2018-01-07] MEDS ORDERED: PIPERACILLIN/TAZOBACTAM 3.375 GM VIAL IVPB ONE ×2 (01:37→08:52)
[2018-01-07] MEDS ORDERED: DEXTROSE 5%-WATER - 50 ML IVPB ONE ×2 (01:37→08:52)
[2018-01-07] MEDS: IBUPROFEN 600 MG TABLET (FP) PO SCH ×2 (02:27→09:08)
[2018-01-07] MEDS: PIPERACILLIN/TAZOB 3.375 GM 3.375 GM in DEXTROSE 5%-WATER - 50 ML IVPB SCH ×2 (02:28→09:08)
[2018-01-07 07:50] LABS: BASO % 0.1 % (0-2.0); EOS % 0.3 % (0-4.5); HEMATOCRIT 40.6 % (35.4-49); HEMOGLOBIN 13.3 GM/dL (11.7-16.9); LYMPH % 16.8 % (8-40); MCH 29.2 pg (25.7-33.7); MCHC 32.6 g/dl (32.0-35.9); MEAN CELL VOLUME 89.4 fl (80-96); MEAN PLT VOLUME 8.5 fl (7.5-11.1); MONO % 4.1 % (3.8-10.2); NEUT % 78.7 % (42.8-82.8); PLATELET COUNT 178 K/MM3 (134-434); RBC 4.54 M/mm3 (4.00-5.60); RDW 13.8 % (11.9-15.9); WHITE BLOOD COUNT 11.8 K/mm3 (4.0-10.0)
--- NOTE | 2018-01-07 08:24 | PN ---
Teaching Attending Note Name of Resident: Jacquelyn Gar ATTENDING PHYSICIAN STATEMENT I saw and evaluated the patient. I reviewed the resident's note and discussed the case with the resident. I agree with the resident's findings and plan as documented. SUBJECTIVE: Patient is comfortable, had a BM ,and passing gas. walking in the hallway with his . OBJECTIVE: Vital Signs Temperature 98.3 F 01/07/18 05:43 Pulse Rate 57 L 01/07/18 05:43 Respiratory Rate 18 01/07/18 05:43 Blood Pressure 94/51 L 01/07/18 05:43 O2 Sat by Pulse Oximetry (%) 96 01/06/18 21:00 GENERAL: Awake, alert, and fully oriented, in no acute distress. HEAD: Normal with no signs of trauma. EYES: Pupils equal, round and reactive to light, extraocular movements intact, sclera anicteric, conjunctiva clear. EARS, NOSE, THROAT: Ears normal, oropharynx clear without exudates. Moist mucous membranes. NECK: Normal range of motion, supple without lymphadenopathy, JVD, or masses. LUNGS: Breath sounds equal, clear to auscultation bilaterally. No wheezes, and no crackles. No accessory muscle use. HEART: Regular rate and rhythm, normal S1 and S2 without murmur, rub or gallop. ABDOMEN: Soft, BS positive, 3 incisions, not distended, minimal tenderness at the incision site ,no guarding, no rebound, no masses. MUSCULOSKELETAL: Normal range of motion at all joints. No bony deformities or tenderness. No CVA tenderness. EXTREMITIES: 2+ pulses, warm, well-perfused. No cyanosis. No clubbing. No peripheral edema. CBCD WBC 11.8 K/mm3 (4.0-10.0) H 01/07/18 07:00 RBC 4.54 M/mm3 (4.00-5.60) 01/07/18 07:00 Hgb 13.3 GM/dL (11.7-16.9) 01/07/18 07:00 Hct 40.6 % (35.4-49) 01/07/18 07:00 MCV 89.4 fl (80-96) 01/07/18 07:00 MCHC 32.6 g/dl (32.0-35.9) 01/07/18 07:00 RDW 13.8 % (11.9-15.9) 01/07/18 07:00 Plt Count 178 K/MM3 (134-434) 01/07/18 07:00 MPV 8.5 fl (7.5-11.1) 01/07/18 07:00 CMP Sodium 140 mmol/L (136-145) 01/06/18 07:18 Potassium 3.3 mmol/L (3.5-5.1) L 01/06/18 07:18 Chloride 105 mmol/L (98-107) 01/06/18 07:18 Carbon Dioxide 23 mmol/L (21-32) 01/06/18 07:18 Anion Gap 12 MMOL/L (8-16) 01/06/18 07:18 BUN 13 mg/dL (7-18) 01/06/18 07:18 Creatinine 0.8 mg/dL (0.55-1.3) 01/06/18 07:18 Creat Clearance w eGFR > 60 (>60) 01/06/18 07:18 Random Glucose 91 mg/dL (74-106) 01/06/18 07:18 Calcium 8.6 mg/dL (8.5-10.1) 01/06/18 07:18 Total Bilirubin 1.3 mg/dL (0.2-1) H 01/05/18 21:32 AST 13 U/L (15-37) L 01/05/18 21:32 ALT 25 U/L (13-61) 01/05/18 21:32 Alkaline Phosphatase 47 U/L (45-117) 01/05/18 21:32 Total Protein 7.6 g/dl (6.4-8.2) 01/05/18 21:32 Albumin 4.1 g/dl (3.4-5.0) 01/05/18 21:32 Current Medications Generic Name Dose Route Start Last Admin Trade Name Freq PRN Reason Stop Dose Admin Acetaminophen 650 mg 01/06/18 18:00 01/07/18 05:25 Tylenol - PO 650 mg Q6H KODAK Administration Lactated Ringer's 1,000 mls @ 125 mls/hr 01/06/18 12:24 01/06/18 13:11 Lactated Ringers Solution IV Not Given ASDIR KODAK Piperacillin Sod/Tazobactam 50 mls @ 100 mls/hr 01/06/18 15:00 01/07/18 02:28 Sod 3.375 gm/ Dextrose IVPB 01/07/18 14:59 100 mls/hr Q6H-IV KODAK Administration Protocol Ibuprofen 600 mg 01/06/18 15:00 01/07/18 02:27 Motrin - PO 600 mg Q6H KODAK Administration Oxycodone HCl 5 mg 01/06/18 12:24 Roxicodone - PO Q6H PRN Pain Level 7 - 10 BREAKTHROUGH Home Medications Medication Instructions Recorded Acetaminophen [Tylenol .Regular 650 mg PO Q6H tablet 01/06/18 Strength -] Ibuprofen [Motrin -] 600 mg PO Q6H tablet 01/06/18 CT A/P with contrast: Findings compatible with acute appendicitis and without evidence of extraluminal air or fluid collection/abscess formation. ASSESSMENT AND PLAN: Patient is a 42 y/o M with no PMHx presents with abdominal pain and vomiting for 1 day. # POD#1 s/p lap appendectomy continue iv antibiotic since was found to have as per surgeon : partially necrotic appendix, edematous with serosal exudate oozing fluid, normal base, small amount yellow fluid in pelvis suctioned. Patient can be D/C home today since doing well on oral Augmentin . Instructions were given by the surgeon. will discharge patient home on Augmentin 875mg BID x 7 days # Hypokalemia , given a dose of Potassium discharge patient home.
--- NOTE | 2018-01-07 10:47 | EKG ---
Test Reason : Blood Pressure : / mmHG Vent. Rate : 086 BPM Atrial Rate : 086 BPM P-R Int : 144 ms QRS Dur : 108 ms QT Int : 376 ms P-R-T Axes : 062 -55 027 degrees QTc Int : 449 ms NORMAL SINUS RHYTHM INCOMPLETE RIGHT BUNDLE BRANCH BLOCK LEFT ANTERIOR FASCICULAR BLOCK ABNORMAL ECG NO PREVIOUS ECGS AVAILABLE Confirmed by Chano Fraser MD ([id number]) on 01/07/2018 10:46:31 AM Referred By: Confirmed By:Chano Fraser MD
--- NOTE | 2018-01-07 11:04 | DS ---
Physical Exam: SUBJECTIVE: Patient seen and examined this morning at bedside. Currently pain is 2-3/10. Has received pain meds twice over night. Has been able to void, pass flatus and have BM overnight. Tolerated dinner last night. Continues to use his incentive spirometer routinely. Denies fevers, chills, chest pain, SOB, nausea, vomiting, diarrhea, constipation. OBJECTIVE: Vital Signs Period Temp Pulse Resp BP Sys/Tai Pulse Ox Last 24 Hr 97.9 F-99.2 F 57-89 16-20 94-117/51-75 96-100 PHYSICAL EXAM GENERAL: A&Ox3, NAD HEAD: NCAT EYES: PERRL, EOMI ENT: Oropharynx clear without exudates, MMM NECK: No JVD LUNGS: Breath sounds equal, clear to auscultation bilaterally, no wheezes HEART: Regular rate and rhythm, S1, S2 without murmur ABDOMEN: Soft, Tender over the incision sites. 3 Incision sites covered with clean, dry dressing without any active drainage and without surrounding swelling or erythema. + bowel sounds, no guarding, no rebound EXTREMITIES: 2+ pulses, no edema. NEUROLOGICAL: Cranial nerves II through XII grossly intact SKIN: Warm, dry, no rashes or lesions noted LABS Laboratory Results - last 24 hr 01/07/18 07:00 WBC 11.8 H RBC 4.54 Hgb 13.3 Hct 40.6 MCV 89.4 MCH 29.2 MCHC 32.6 RDW 13.8 Plt Count 178 MPV 8.5 Absolute Neuts (auto) 9.3 H Neutrophils % 78.7 Lymphocytes % 16.8 D Monocytes % 4.1 Eosinophils % 0.3 Basophils % 0.1 Nucleated RBC % 0 IMAGING: CT A/P with contrast: Findings compatible with acute appendicitis and without evidence of extraluminal air or fluid collection/abscess formation. EKG: NORMAL SINUS RHYTHM, INCOMPLETE RIGHT BUNDLE BRANCH BLOCK, LEFT ANTERIOR FASCICULAR BLOCK HOSPITAL COURSE: Date of Admission:01/05/18 Date of Discharge: 01/07/18 Patient presented with RLQ abdominal pain and NBNB Vomiting. CT A/P had findings compatible with acute appendicitis and surgery was consulted. Additionally, Initial labs found an elevated WBC count. Patient was kept NPO, given D5 1/2 NS, nausea controlled with Zofran and Pain controlled with Morphine. Patient underwent laparoscopic appendectomy. He was able to void, pass flatus, have a BM, tolerate diet and ambulate after the procedure. Additionally, he received 2 doses of Cefoxitin pre-op, 4 doses of Zosyn post-op , and was discharged on a 5 day course of Augmentin (for total 7 days). His WBC trended down. Patient was discharged home with strict instructions on limitations of activity and follow up with Dr. Smith. Minutes to complete discharge: 40 Discharge Summary Reason For Visit: APPENDICITIS Current Active Problems Acute appendicitis with localized peritonitis (Acute) Appendicitis (Acute) Leukocytosis (Acute) RLQ abdominal pain (Acute) Condition: Improved - Instructions Diet, Activity, Other Instructions: You need to follow up with Dr. Gar once you leave the hospital. You must CALL for an appointment to establish primary care in the resident medical clinic. Postoperative instructions: You had a laparoscopic appendectomy on 01/06/[address] Freddy Smith of [facility]. Activity: Resume your usual activities gradually, but no heavy exertion or lifting more than 10-15 pounds for 1 month. Remove dressings 48 hours after surgery; sticky tapes underneath will fall off by themselves. You may shower daily starting then, just pat the incision areas dry. No bath or swimming until skin incisions have healed. Eat lightly at first, but advance to your usual diet as tolerated. Pain: For pain, you may use and alternate Tylenol (acetaminophen) 1-2 pills and/ or ibuprofen 200 mg (1-3 pills) every 6 hours each as needed; this means that you can take one OR the other at 3-hour intervals. If you are prescribed a Tylenol/narcotic combination for severe pain, use it instead of plain Tylenol as needed and switch back when your pain starts decreasing. Do not take more than 4000mg of acetaminophen in a day. Take medications as prescribed or indicated on the labeling. supervisor quilting from pharmacy and take ALL antibiotics as prescribed - Augmentin 875mg twice daily for 5 days. Take with food if possible. Follow-up: CALL Dr. Smith's office at [phone] to make your postop appointment (Saturday in approximately 2 weeks after surgery). Clinic is held in the [facility] on the first floor of [facility], [place]. Call the office if you have: * increasing pain not responsive to pain medication * fever of 101F or higher * vomiting * unusual or increasing bleeding or drainage from wounds * increasing redness or swelling at wound sites * inability to urinate Also, see your new primary medical doctor as noted above within 1-2 weeks. Referrals: [facility] [place] [Provider Group] Erick Wetzel MD [Staff Physician] - Freddy Smith MD [Staff Physician] - 2 Weeks Jacquelyn Gar RES [Resident] - Disposition: HOME - Home Medications Comprehensive Discharge Medication List: Ambulatory Orders Acetaminophen [Tylenol .Regular Strength -] 650 mg PO Q6H tablet 01/06/18 Ibuprofen [Motrin -] 600 mg PO Q6H tablet 01/06/18 Amoxicillin/Potassium Clav [Augmentin 875-125 Tablet] 1 each PO BID #10 tablet 01/07/18 This patient is new to me today: Yes Date on this admission: 01/07/18 Emergency Visit: Yes ED Registration Date: 01/05/18 Care time: The patient presented to the Emergency Department on the above date and was hospitalized for further evaluation of their emergent condition. Critical Care patient: No - Discharge Referral Referred to [facility] Med P.C.: No
[2018-01-07 11:17] VITALS: BP 113/69; PULSE 72; TEMP 98.4
--- NOTE | 2018-01-07 11:20 | PN ---
Progress Note, Physician Chief Complaint: s/p lap appendectomy under general anesthesia History of Present Illness: post op day one - Current Medication List Current Medications: Active Medications Acetaminophen (Tylenol -) 650 mg PO Q6H KODAK Last Admin: 01/07/18 05:25 Dose: 650 mg Lactated Ringer's (Lactated Ringers Solution) 1,000 mls @ 125 mls/hr IV ASDIR KODAK Last Admin: 01/06/18 13:11 Dose: Not Given Piperacillin Sod/Tazobactam (Sod 3.375 gm/ Dextrose) 50 mls @ 100 mls/hr IVPB Q6H-IV KODAK; Protocol Stop: 01/07/18 14:59 Last Admin: 01/07/18 09:08 Dose: 100 mls/hr Ibuprofen (Motrin -) 600 mg PO Q6H KODAK Last Admin: 01/07/18 09:08 Dose: 600 mg Oxycodone HCl (Roxicodone -) 5 mg PO Q6H PRN PRN Reason: Pain Level 7 - 10 BREAKTHROUGH - Objective Vital Signs: Vital Signs Temperature 98.4 F 01/07/18 10:00 Pulse Rate 72 01/07/18 10:00 Respiratory Rate 18 01/07/18 10:00 Blood Pressure 113/69 01/07/18 10:00 O2 Sat by Pulse Oximetry (%) 96 01/06/18 21:00 Constitutional: Yes: Well Nourished Cardiovascular: Yes: WNL Respiratory: Yes: WNL Gastrointestinal: Yes: WNL Labs: CBC, BMP 01/07/18 07:00 01/06/18 07:18 INR, PTT INR 1.18 (0.83-1.09) H 01/06/18 07:18 Assessment/Plan no adverse effect of anesthetic, pain controlled, dept of anesthesia will sign off care at this time
--- NOTE | 2018-01-07 11:37 | PN ---
Progress Note, Physician History of Present Illness: s/p lap appy for acute appendicitis with findings of purulent fluid in pelvis and periappendiceal exudate continued on antibiotics wbc decreasing ambulated, voiding, had BM, tolerating diet pain controlled with nonnarcotics po - Current Medication List Current Medications: Active Medications Acetaminophen (Tylenol -) 650 mg PO Q6H KODAK Last Admin: 01/07/18 05:25 Dose: 650 mg Lactated Ringer's (Lactated Ringers Solution) 1,000 mls @ 125 mls/hr IV ASDIR KODAK Last Admin: 01/06/18 13:11 Dose: Not Given Piperacillin Sod/Tazobactam (Sod 3.375 gm/ Dextrose) 50 mls @ 100 mls/hr IVPB Q6H-IV KODAK; Protocol Stop: 01/07/18 14:59 Last Admin: 01/07/18 09:08 Dose: 100 mls/hr Ibuprofen (Motrin -) 600 mg PO Q6H KODAK Last Admin: 01/07/18 09:08 Dose: 600 mg Oxycodone HCl (Roxicodone -) 5 mg PO Q6H PRN PRN Reason: Pain Level 7 - 10 BREAKTHROUGH - Objective Vital Signs: Vital Signs Temperature 98.4 F 01/07/18 10:00 Pulse Rate 72 01/07/18 10:00 Respiratory Rate 18 01/07/18 10:00 Blood Pressure 113/69 01/07/18 10:00 O2 Sat by Pulse Oximetry (%) 96 01/06/18 21:00 Constitutional: Yes: Well Nourished, No Distress, Calm Eyes: Yes: Conjunctiva Clear, EOM Intact HENT: Yes: Atraumatic, Normocephalic Gastrointestinal: Yes: Normal Bowel Sounds, Soft, Tenderness (mild RLQ and incisional, less RUQ). No: Tenderness, Rebound ...Rectal Exam: Yes: Deferred Extremities: No: Cool, Cyanosis Integumentary: Yes: Incision (x3 dressed). No: Jaundice, Rash Wound/Incision: Yes: Steri Strips (under dressings), Dressing Dry and Intact (x3 ). No: Dressing Removed Neurological: Yes: Alert, Oriented Labs: CBC 01/07/18 07:00 wbc down Problem List - Problems (1) Acute appendicitis with localized peritonitis Assessment/Plan: POD1 s/p laparoscopic appendectomy doing well ambulating, voiding, had BM tolerating diet pain controlled with po tyl/ibu alternating ready for d/c home with lifting restrictions on antibiotics po - Augmentin x another 5 days to f/u in 2 weeks instructions in d/c plan discussed with primary team Code(s): K35.3 - ACUTE APPENDICITIS WITH LOCALIZED PERITONITIS * DO NOT USE * Qualifiers: Appendicitis gangrene presence: without gangrene Appendicitis perforation presence: without perforation Appendicitis abscess presence: without abscess Qualified Code(s): K35.30 - Acute appendicitis with localized peritonitis, without perforation or gangrene (2) RLQ abdominal pain Assessment/Plan: much improved Code(s): R10.31 - RIGHT LOWER QUADRANT PAIN (3) Leukocytosis Assessment/Plan: decreasing Code(s): D72.829 - ELEVATED WHITE BLOOD CELL COUNT, UNSPECIFIED Qualifiers: Leukocytosis type: bandemia Qualified Code(s): D72.825 - Bandemia
--- NOTE | 2018-01-07 17:38 | PATH ---
Surgical Pathology Report Patient Name: LENO RHODES Med. Rec. #: [id number] /Age/Gender: 1975 (Age: 42) / M Account: [id number] Location: [facility] MED/SURG Taken: 01/06/2018 Received: 01/06/2018 Reported: 01/07/2018 Physicians: Harmeet Carter M.D. Specimen(s) Received APPENDIX Clinical History Acute appendicitis Final Diagnosis APPENDIX, APPENDECTOMY: SEVERE ACUTE TRANSMURAL APPENDICITIS AND PERIAPPENDICITIS. Electronically Signed Ra Calzada M.D. Gross Description Specimen is received in formalin, labeled "appendix", and consists of an appendix, measuring 12cm in length and 0.9cm in average diameter. The serosal (external) surface of the appendix is dull and covered by purulent material with gangrenous change. On opening the appendix contains purulent material. The mucosal surface is dark-brown and ulcerated. [employer] sections are submitted in one cassette. IVONE/01/06/2018 marisol/01/06/2018
== END 2018-01-07 13:35 | disposition home or self-care (01) | DRG 225 ==
LOC: JER 19:24 → J7W 23:33 → JERBED 23:33 → SUATTDRO 23:33 → JASUSAT 23:33 → UNDOADMIN 23:33 → J7W 23:34 → JASUSAT 23:34 → J7W 01-06 06:59 → JERBED 01-06 06:59
PROVIDERS: ADMIT Internal Medicine; ATTEND Internal Medicine
PROC: 0DTJ4ZZ Resection of Appendix, Percutaneous Endoscopic Approach (ICD-10-PCS; principal; 2018-01-06 14:00)
DX: K35.33 Acute appendicitis with perforation, localized peritonitis, and gangrene, with abscess (principal); I45.2 Bifascicular block; E87.6 Hypokalemia; D72.829 Elevated white blood cell count, unspecified
CPT/HCPCS: 36415; 74177-TC; 80048; 80053; 81003; 83605; 83690; 85025; 85610; 85730; 86850; 86900; 86901; 88304-TC; 90688; 93005; 93010; 94760; 99285-25; G0008; J0131; J7030